=== PATIENT | male | born 1975 | race Caucasian/White ===

== ENCOUNTER 2019-02-24 14:23 | Emergency (ER) | payer OTHER ==
[~2019-02-24] VITALS: Ht 182.9 cm; Wt 108.9 kg
[2019-02-24 14:25] VITALS: BP_SYST 131
[2019-02-24] MEDS ORDERED: KETOROLAC TROMETHAMINE 60 MG/2 ML VIAL IM ONE (15:30)
[2019-02-24 16:50] VITALS: BP_SYST 124
== END 2019-02-24 16:47 | disposition home or self-care (01) ==
LOC: SED 14:23
DX: M54.5 Low back pain (principal)
CPT/HCPCS: 96372; 99283; J1885